=== PATIENT | female | born 1955 | race Caucasian/White ===

== ENCOUNTER → 2018-02-27 14:08 | Outpatient (CLI) | payer OTHER, SELFPAY ==
--- NOTE | 2018-02-27 | DI.US.S_ITS ---
PROCEDURE: US CAROTID DOPPLER BI INDICATIONS: POSSIBLE SUBCLAVIAN STEAL SYNDROME TECHNIQUE: Color and pulse Doppler interrogation was performed of both carotid systems, with image documentation and velocity measurements. COMPARISON: None. FINDINGS: Stenosis calculations are based on SRU (Society of Radiologists in Ultrasound) criteria. Right side: Brachial blood pressure: 122/79 mm Hg. Common carotid artery peak systolic velocity: 80 cm/sec. Internal carotid artery peak systolic velocity: 71 cm/sec. Internal carotid artery end diastolic velocity: 32 cm/sec. External carotid artery peak systolic velocity: 59 cm/sec. ICA/CCA peak systolic ratio: 0.8. Durand scale imaging description: Minimal plaque. Percent internal carotid artery stenosis: Less than 50%. Vertebral artery: Flow direction is antegrade. Left side: Brachial blood pressure: 116/76 mm Hg. Common carotid artery peak systolic velocity: 102 cm/sec. Internal carotid artery peak systolic velocity: 83 cm/sec. Internal carotid artery end diastolic velocity: 39 cm/sec. External carotid artery peak systolic velocity: 61 cm/sec. ICA/CCA peak systolic ratio: 1.3. Durand scale imaging description: Minimal plaque Percent internal carotid artery stenosis: Less than 50%. Vertebral artery: Flow direction is antegrade. IMPRESSION: Less than 50% bilateral internal carotid artery stenosis and no evidence for subclavian steal phenomenon. Dictated by: Tremayne Barragan Asa Interpreted: Yana Martinez MD on 02/27/2018 at 14:59 Approved by: Yana Martinez M.D. on 02/27/2018 at 16:31
== END ==
PROVIDERS: Family Provider Family Medicine; PCP Family Medicine; Visit Provider Psychiatry & Neurology Neurology
DX: Z13.6 Encounter for screening for cardiovascular disorders (principal)
CPT/HCPCS: 93880

== ENCOUNTER → 2018-08-15 09:18 | Outpatient (CLI) | payer OTHER, SELFPAY | PROVIDERS: Family Provider Family Medicine; PCP Family Medicine; Visit Provider Physician Assistant | DX: R39.9 Unspecified symptoms and signs involving the genitourinary system (principal) | CPT/HCPCS: 87077; 87086; 87186 ==

== ENCOUNTER → 2024-01-04 13:20 | Outpatient (CLI) | payer MEDICARE, OTHER, SELFPAY ==
[2024-01-04 14:06] LABS: Influenza A - CEPHEID Flu A NEGATIVE (NEGATIVE); Influenza B - CEPHEID Flu B NEGATIVE (NEGATIVE); Respiratory Syncytial Virus Negative (Negative)
[2024-01-04 14:12] LABS: COVID-19 CEPHEID 4-PLEX PCR Negative (Negative)
== END ==
PROVIDERS: Family Provider Family Medicine; PCP Family Medicine; Visit Provider Physician Assistant Medical
DX: R05.1 Acute cough (principal)
CPT/HCPCS: 0241U

== ENCOUNTER → 2025-03-08 08:48 | Outpatient (CLI) | payer MEDICARE, OTHER, SELFPAY ==
[2025-03-08 09:21] LABS: Add Manual Diff / Slide Review NO; Hematocrit 40.0 % (36-46); Hemoglobin 13.5 g/dL (12.0-16.0); Lymphocytes Absolute Auto 1300 /uL (1100-4500); Mean Corpuscular HGB Conc 33.8 % (30-36); Mean Corpuscular Hemoglobin 31.4 PG (26-34); Mean Corpuscular Volume 92.9 fL (80-100); Platelet Count 160 X10^3/uL (150-400)
[2025-03-08 09:28] LABS: Hemoglobin A1C% w Est Avg Glu 4.8 % (4.0-6.0)
[2025-03-08 09:44] LABS: Alanine Aminotransferase 21 IU/L (<35); Albumin 4.5 g/dL (3.5-5.0); Albumin Globulin Ratio 1.8 (1.0-2.8); Alkaline Phosphatase 70 U/L (38-126); Blood Urea Nitrogen 21 mg/dL (7-17); Calcium 9.7 mg/dL (8.4-10.2); Carbon Dioxide 29 mmol/L (22-32); Chloride 102 mmol/L (98-107); Cholesterol 243 mg/dL (140-199); Estimated Glomerular Filt Rate > 60 mL/min (>60); Globulin 2.5 g/dL (1.7-4.1); Glucose 86 mg/dL (70-99); HDL Cholesterol 101 mg/dL (40-60); HEMOLYSIS < 15 (0-50); Potassium 4.0 mmol/L (3.4-5.1); Sodium 138 mmol/L (137-145); Total Protein 7.0 g/dL (6.3-8.2); Triglycerides 82 mg/dL (35-150)
[2025-03-08 10:15] LABS: TSH w/ Reflex to FT4 1.09 uIU/mL (0.47-4.68)
== END ==
PROVIDERS: Family Provider Family Medicine; PCP Student in an Organized Health Care Education/Training Program; Referring Provider Student in an Organized Health Care Education/Training Program; Visit Provider Student in an Organized Health Care Education/Training Program
DX: I99.8 Other disorder of circulatory system (principal); Z78.0 Asymptomatic menopausal state; N80.9 Endometriosis, unspecified; G25.81 Restless legs syndrome; Z86.79 Personal history of other diseases of the circulatory system
CPT/HCPCS: 36415; 80053; 80061; 83036; 84443; 85025

== ENCOUNTER → 2025-04-06 07:57 | Outpatient (CLI) | payer MEDICARE, OTHER, SELFPAY ==
--- NOTE | 2025-04-06 07:59 | DI.ECHO.S_ITS ---
[facility] : : [id number] : [place] : : [id number] : : Phone: [phone] Echocardiogram Report + + :Name: AMA PEPE Study Date: 04/06/2025 Height: 67 in : :Hospital ReadingLocation: Weight: 140 lb : : Gender: Female BSA: 1.7 m2 : :: 1955 Age: 69 yrs BP: 108/66 mmHg: :Reason For Study: VALVE PROLAPSE : :Ordering Physician: MARTITA, : :NEGRA Performed By: Herve Burris : :Referring: NEGRA ANDERS : + + Interpretation Summary 1) Normal left ventricular thickness, size, wall motion, and systolic function (EF 55-60%). 2) Normal right ventricular size and function. 3) There is borderline mitral valve prolapse of the posterior leaflet. There is trace mitral regurgitation. 4) No prior Echo available for comparison. Procedure: A two-dimensional transthoracic echocardiogram with color flow and Doppler was performed. The study quality was technically good. There is no prior echocardiogram noted for this patient. The patient was in normal sinus rhythm during the exam. Left Ventricle: The left ventricle is normal in size. There is normal left ventricular wall thickness. Proximal septal thickening is noted. There is no ventricular septal defect visualized. The ejection fraction is estimated to be 55-60%. There are no focal wall motion abnormalities. Diastolic parameters suggest probable normal left ventricular diastolic function and normal filling pressures. Right Ventricle: The right ventricle is normal in size and function. Atria: The left atrial size is normal. Right atrial size is normal. There is no Doppler evidence for an interatrial shunt. Mitral Valve: There is borderline mitral valve prolapse. There is trace mitral regurgitation. Aortic Valve: The aortic valve is trileaflet. The aortic valve opens well. There is no aortic valve stenosis. No aortic regurgitation is present. Tricuspid Valve: The tricuspid valve leaflets are thin and pliable. There is trace tricuspid regurgitation. Pulmonic Valve: The pulmonic valve is not well seen, but is grossly normal. There is no pulmonic valvular regurgitation. Great Vessels: The aortic root is normal size. The dimensions of the ascending aorta are normal. The pulmonary artery is normal size. The IVC is of normal diameter and collapses greater than 50% with a sniff. This suggests a low right atrial pressure of 3 mm Hg. Pericardium/ Pleura There is no pericardial effusion. There is no pleural effusion. MMode/2D Measurements & Calculations LVIDd: 4.5 cm LVOT diam: 1.9 cm LVIDs: 3.0 cm Ao root diam: 3.3 cm FS: 31.9 % asc Aorta Diam: 3.3 cm EPSS: 0.30 cm IVSd: 0.69 cm LVPWd: 0.74 cm LV mosley. diameter/BSA (cm/m^2): 2.6 LV sys. diameter/BSA (cm/m^2): 1.7 LA A2 area: 16.8 cm2 RA long axis: 4.0 cm LA A4 area: 14.7 cm2 RA area: 11.4 cm2 LA length (vol): 4.6 cm RA vol: 27.6 ml LA vol: 46.1 ml RA : 15.9 ml/m2 LA vol index: 26.5 ml/m2 IVC diam: 1.4 cm RVD1 (basal): 3.2 cm RVD2 (mid): 2.5 cm TAPSE: 2.2 cm Doppler Measurements & Calculations Ao V2 max: 129.4 cm/sec LVOT Max Asaf: 112.7 cm/sec Ao V2 mean: 89.7 cm/sec LV V1 max P.1 mmHg Ao max P.7 mmHg LV V1 VTI: 22.7 cm Ao mean P.5 mmHg LAUREN(I,D): 2.7 cm2 Ao V2 VTI: 24.6 cm LAUREN(V,D): 2.5 cm2 sev ratio: 0.93 LAUREN indexed to BSA (cm^2/m^2): 1.6 MV E max asaf: 66.9 cm/sec TR max asaf: 232.6 cm/sec MV A max asaf: 66.6 cm/sec TR max P.6 mmHg MV E/A: 1.0 PA V2 max: 95.4 cm/sec Med Peak E' Asaf: 9.0 cm/sec PA V2 mean: 66.7 cm/sec E/E' med: 7.5 PA mean P.9 mmHg Lat Peak E' Asaf: 10.7 cm/sec PA pr(Accel): 53.3 mmHg E/E' lat: 6.2 E/e' average: 6.9 MV dec time: 0.16 sec SV(LVOT): 66.2 ml Reading Physician:12:59 PM
== END ==
LOC: ECHO 07:58
PROVIDERS: Family Provider Family Medicine; PCP Student in an Organized Health Care Education/Training Program; Referring Provider Student in an Organized Health Care Education/Training Program; Visit Provider Student in an Organized Health Care Education/Training Program
DX: I34.1 Nonrheumatic mitral (valve) prolapse (principal); I34.0 Nonrheumatic mitral (valve) insufficiency; Z86.79 Personal history of other diseases of the circulatory system
CPT/HCPCS: 93306

== ENCOUNTER → 2025-05-17 08:53 | Outpatient (CLI) | payer MEDICARE, OTHER, SELFPAY ==
[2025-05-17 09:38] LABS: Add Manual Diff / Slide Review NO; Hematocrit 40.2 % (36-46); Hemoglobin 13.7 g/dL (12.0-16.0); Lymphocytes Absolute Auto 1500 /uL (1100-4500); Mean Corpuscular HGB Conc 34.1 % (30-36); Mean Corpuscular Hemoglobin 31.4 PG (26-34); Mean Corpuscular Volume 91.9 fL (80-100); Platelet Count 156 X10^3/uL (150-400)
[2025-05-17 09:56] LABS: Cholesterol 219 mg/dL (140-199); HDL Cholesterol 99 mg/dL (40-60); Triglycerides 89 mg/dL (35-150)
== END ==
PROVIDERS: Family Provider Family Medicine; PCP Student in an Organized Health Care Education/Training Program; Referring Provider Student in an Organized Health Care Education/Training Program; Visit Provider Student in an Organized Health Care Education/Training Program
DX: E78.9 Disorder of lipoprotein metabolism, unspecified (principal); R79.89 Other specified abnormal findings of blood chemistry
CPT/HCPCS: 36415; 80061; 85025

== ENCOUNTER → 2025-08-25 08:27 | Outpatient (CLI) | payer MEDICARE, OTHER, SELFPAY ==
[2025-08-25 09:35] LABS: Alanine Aminotransferase 18 IU/L (<35); Albumin 4.3 g/dL (3.5-5.0); Albumin Globulin Ratio 1.7 (1.0-2.8); Alkaline Phosphatase 88 U/L (38-126); Blood Urea Nitrogen 23 mg/dL (7-17); Calcium 9.6 mg/dL (8.4-10.2); Carbon Dioxide 24 mmol/L (22-32); Chloride 109 mmol/L (98-107); Estimated Glomerular Filt Rate 60 mL/min (>60); Globulin 2.5 g/dL (1.7-4.1); Glucose 80 mg/dL (70-99); HEMOLYSIS < 15 (0-50); Potassium 4.2 mmol/L (3.4-5.1); Sodium 140 mmol/L (137-145); Total Protein 6.8 g/dL (6.3-8.2)
[2025-08-26 11:12] LABS: Rubeola Measles IgG > 300.0 AU/mL (Immune >16.4)
== END ==
PROVIDERS: PCP Student in an Organized Health Care Education/Training Program; Referring Provider Student in an Organized Health Care Education/Training Program; Visit Provider Student in an Organized Health Care Education/Training Program
DX: Z13.9 Encounter for screening, unspecified (principal); E87.6 Hypokalemia
CPT/HCPCS: 36415; 80053; 86765